=== PATIENT | female | born 1960 | race Caucasian/White ===

== ENCOUNTER 2017-01-10 18:03 | Emergency (ER) | payer MEDICARE, MEDICAID ==
[~2017-01-10] VITALS: Ht 170.2 cm; Wt 67.3 kg
[~2017-01-10 18:03] MED LIST: CLON-364 PO; CLON-365 PO; NICO1PAT5 TD; OLAN5TAB9 PO; ONDA4TAB13 PO; PRAZ2CAP2 PO; PRAZ5CAP2 PO
[2017-01-10 18:10] VITALS: BP 116/74
== END 2017-01-10 19:16 | disposition home or self-care (01) ==
LOC: ED 19:10
DX: R05 Cough (principal); R50.9 Fever, unspecified; J44.9 Chronic obstructive pulmonary disease, unspecified; Z88.0 Allergy status to penicillin; Z88.8 Allergy status to other drugs, medicaments and biological substances; F17.200 Nicotine dependence, unspecified, uncomplicated
CPT/HCPCS: 71020; 99284